=== PATIENT | female | born 1995 | race Caucasian/White ===

== ENCOUNTER 2023-11-28 13:33 | Inpatient (IN) | payer BC ==
[2023-11-28 15:03] VITALS: BMI 20.5
[2023-11-28] MEDS ORDERED: cloNIDine HCL 0.1 MG TABLET PO PRN (17:04)
[2023-11-28] MEDS ORDERED: NALOXONE HCL (KLOXXADO) 8 MG SPRAY NS PRN (17:04)
[2023-11-28] MEDS ORDERED: POLYETHYLENE GLYCOL (HEALTHYLAX) 3350 17 GM PACKET PO PRN (17:04)
[2023-11-28] MEDS ORDERED: BENZOCAINE/MENTHOL (CHLORASEPTIC ) LOZENGE MM PRN (17:04)
[2023-11-28] MEDS ORDERED: ONDANSETRON *ODT* 4 MG TABLET SL PRN (17:04)
[2023-11-28] MEDS ORDERED: NICOTINE POLACRILEX 2 MG GUM BUC PRN (17:04)
[2023-11-28] MEDS ORDERED: DICYCLOMINE HCL 10 MG CAPSULE PO PRN (17:04)
[2023-11-28] MEDS ORDERED: IBUPROFEN 400 MG TABLET (FP) PO PRN (17:04)
[2023-11-28] MEDS ORDERED: BISMUTH SUBSALICYLATE 524 MG/30 ML PO PRN (17:04)
[2023-11-28] MEDS ORDERED: MAGNESIUM HYDROX 2400MG/30ML ORAL SUSPENSION 30 ML CUP PO PRN (17:04)
[2023-11-28] MEDS ORDERED: guaiFENesin 600 MG TABLET.ER (FP) PO PRN (17:04)
[2023-11-28] MEDS ORDERED: ACETAMINOPHEN 325 MG TABLET (FP) PO PRN (17:04)
[2023-11-28] MEDS ORDERED: MAG HYDROX/AL HYDROX/SIMETH 30 ML UNIT-DOSE CUP PO PRN (17:04)
[2023-11-28] MEDS ORDERED: NALOXONE HCL 0.4 MG/ML VIAL IM PRN (17:04)
[2023-11-28] MEDS ORDERED: BENZONATATE 200 MG CAPSULE PO PRN (17:04)
[2023-11-28] MEDS ORDERED: LOPERAMIDE HCL 2 MG CAPSULE PO PRN (17:04)
[2023-11-28] MEDS ORDERED: methaDONE HCL 10 MG TABLET (FOR DETOX USE ONLY) ONE (17:34)
[2023-11-28] MEDS: methaDONE HCL 10 MG TABLET (FOR DETOX USE ONLY) PO ONE (17:39)
[2023-11-28] MEDS: diazePAM 5 MG TABLET PO PRN (18:30)
[2023-11-28] MEDS: MELATONIN 5 MG TABLETS PO SCH (22:32)
[2023-11-28] MEDS: THIAMINE HCL 100 MG TABLET (FP) PO SCH (22:33)
[2023-11-28] MEDS: diazePAM 5 MG TABLET PO SCH (22:33)
[2023-11-29] MEDS: IBUPROFEN 600 MG TABLET (FP) PO PRN (09:24)
[2023-11-29 09:47] VITALS: BP 119/69; PULSE 71; RESP 18; TEMP 98.2
[2023-11-29] MEDS: PRENATAL VITAMINS W/ FOLIC ACID TABLET (FP) PO SCH (10:03)
[2023-11-29] MEDS: NICOTINE 14 MG/24 HOURS TOPICAL PATCH TD SCH (10:03)
[2023-11-29 11:07] LABS: HEMATOCRIT 35.4 % (32.4-45.2); HEMOGLOBIN 12.2 GM/dL (10.7-15.3); MCH 29.5 pg (25.7-33.7); MCHC 34.3 g/dl (32.0-36.0); MEAN CELL VOLUME 85.9 fl (80-96); MEAN PLT VOLUME 7.8 fl (7.5-11.1); PLATELET COUNT 279 10^3/uL (134-434); RBC 4.13 M/mm3 (3.60-5.2); RDW 13.1 % (11.6-15.6); WHITE BLOOD COUNT 7.2 K/mm3 (4.0-10.0)
[2023-11-29 11:10] LABS: CHLORIDE 106 mmol/L (98-107); POTASSIUM 4.2 mmol/L (3.5-5.1); SODIUM 140 mmol/L (136-145)
[2023-11-29 11:14] LABS: CALCIUM 9.8 mg/dL (8.5-10.1)
[2023-11-29 11:15] LABS: ALBUMIN 3.4 g/dl (3.4-5.0); BLOOD UREA NITROGEN 8.3 mg/dL (7-18); GLUCOSE,RANDOM 91 mg/dL (74-106)
[2023-11-29 11:16] LABS: SGOT/AST 15 U/L (15-37)
[2023-11-29 11:17] LABS: ANION GAP 2 mmol/L (4-13); CO2 33 mmol/L (21-32)
[2023-11-29 11:18] LABS: CREATININE 0.5 mg/dL (0.55-1.3); TOT PROT 6.6 g/dl (6.4-8.2)
[2023-11-29 11:20] LABS: BILIRUBIN,TOTAL 0.2 mg/dL (0.2-1)
[2023-11-29 11:23] LABS: SGPT/ALT 21 U/L (13-61)
[2023-11-29 11:25] LABS: ALK PHOS 39 U/L (45-117)
[2023-11-29] MEDS: METHOCARBAMOL 500 MG TABLET PO PRN (12:31)
[2023-11-29] MEDS: hydrOXYzine PAMOATE 25 MG CAPSULE (FP) PO PRN (12:31)
[2023-11-30] MEDS ORDERED: diazePAM 5 MG TABLET PO SCH (06:00)
[2023-11-30] MEDS ORDERED: methaDONE HCL 10 MG TABLET (FOR DETOX USE ONLY) PO ONE (10:00)
[2023-12-01] MEDS ORDERED: diazePAM 5 MG TABLET PO SCH (06:00)
[2023-12-02] MEDS ORDERED: diazePAM 5 MG TABLET PO ONE (06:00)
[2023-12-02] MEDS ORDERED: methaDONE HCL 10 MG TABLET (FOR DETOX USE ONLY) PO ONE (10:00)
== END 2023-11-29 13:47 | disposition left against medical advice (07) | DRG 770 ==
LOC: YASAS 13:33 → Y3N 17:40
PROVIDERS: ADMIT Allergy & Immunology; ATTEND Surgery
PROC: HZ2ZZZZ Detoxification Services for Substance Abuse Treatment (ICD-10-PCS; principal; 2023-11-28)
DX: F11.23 Opioid dependence with withdrawal (principal); F13.230 Sedative, hypnotic or anxiolytic dependence with withdrawal, uncomplicated; F14.20 Cocaine dependence, uncomplicated; F17.210 Nicotine dependence, cigarettes, uncomplicated; Z28.310 Unvaccinated for COVID-19; Z28.9 Immunization not carried out for unspecified reason
CPT/HCPCS: 36415; 80053; 80307; 85027; 86780; 87635; 93005; 93010